=== PATIENT | male | born 1960 | race Caucasian/White ===

== ENCOUNTER 2022-08-05 19:35 | Emergency (ER) | payer SELFPAY ==
[~2022-08-05] VITALS: Ht 182.9 cm; Wt 84.8 kg
--- NOTE | 2022-08-05 19:48 | NUR ---
Patient placed in 2B. Family at bedside.
--- NOTE | 2022-08-05 19:49 | NUR ---
Dr. Olivares at bedside. MSE in progress.
[2022-08-05] MEDS ORDERED: ASPIRIN 81 MG TAB.CHEW PO ONE (20:15)
[2022-08-05 20:19] LABS: HEMATOCRIT 41.9 % (36.7-47.1); MEAN CORPUSCULAR HEMOGLOBIN 31.7 uug (23.8-33.4); MEAN CORPUSCULAR VOLUME 93.4 fL (73.0-96.2); PLATELET COUNT (AUTO) 189 K/uL (152-348)
[2022-08-05] MEDS ORDERED: ASPIRIN 81 MG TAB.CHEW ONE (20:21)
[2022-08-05 20:42] LABS: CARBON DIOXIDE 31 mmol/L (21-32); CHLORIDE 104 mmol/L (98-107); CREATININE 1.1 mg/dL (0.6-1.3); GLUCOSE 133 mg/dL (74-106); POTASSIUM 3.9 mmol/L (3.5-5.1); UREA NITROGEN, BLOOD 20 mg/dL (7-18)
[2022-08-05 20:51] LABS: ALANINE AMINOTRANSFERASE 28 U/L (16-63); ALKALINE PHOSPHATASE 89 U/L (50-136); ASPARTATE AMINOTRANSFERASE 21 U/L (15-37); BILIRUBIN,DIRECT 0.1 mg/dL (0.0-0.2); BILIRUBIN,TOTAL 0.3 mg/dL (0.2-1.0)
[2022-08-06] MEDS ORDERED: METOPROLOL TARTRATE 50 MG TABLET PO ONE (00:15)
[2022-08-06] MEDS ORDERED: ENOXAPARIN SODIUM 80 MG/0.8 ML DISP.SYRIN SQ ONE ×2 (00:15→00:27)
[2022-08-06] MEDS ORDERED: METOPROLOL TARTRATE 50 MG TABLET ONE (00:26)
[2022-08-06] MEDS ORDERED: METO50TA16 PO (00:50)
[2022-08-06] MEDS ORDERED: ENOX40DI SQ (00:50)
[2022-08-06] MEDS ORDERED: BLOO-1730 MC (01:09)
--- NOTE | 2022-08-06 01:24 | NUR ---
Patient does not wish to proceed with medical care recommended by . Patient given information related to possible complications, up to and including , which could occur as a result of leaving the hospital at this time. Patient verbalizes understanding of risks involved due to leaving against medical advice. Patient has signed AMA form.
[2022-08-06 02:00] VITALS: BP 134/81
== END 2022-08-06 01:24 | disposition left against medical advice (07) ==
LOC: ER 19:39
DX: I24.9 Acute ischemic heart disease, unspecified (principal); Z79.899 Other long term (current) drug therapy; Z20.822 Contact with and (suspected) exposure to COVID-19
CPT/HCPCS: 99285; 71045; 87426; 80076; 80048; 83036; 83735; 85025; 84484 ×2; 36415; 93005; 96372; J1650; A4663